=== PATIENT | male | born 1980 | race African-American/Black ===

== ENCOUNTER 2018-03-11 09:26 | Emergency (ER) | payer OTHER ==
[~2018-03-11] VITALS: Ht 170.2 cm; Wt 99.8 kg
[2018-03-11 09:25] VITALS: TEMP 98.2
[2018-03-11 11:00] VITALS: BP 118/74
== END 2018-03-11 11:00 | disposition home or self-care (01) ==
LOC: ED 09:26
DX: S01.81XA Laceration without foreign body of other part of head, initial encounter (principal); S00.83XA Contusion of other part of head, initial encounter; W22.8XXA Striking against or struck by other objects, initial encounter; Y93.89 Activity, other specified; Y92.69 Other specified industrial and construction area as the place of occurrence of the external cause
CPT/HCPCS: 99283